=== PATIENT | male | born 1955 | race Caucasian/White ===

== ENCOUNTER 2020-01-06 09:08 | Outpatient (REF) | payer MEDICARE, SELFPAY ==
--- NOTE | 2020-01-06 09:14 | XR_ITS ---
EXAMINATION: XR CHEST CLINICAL INFORMATION: Bronchitis. COMPARISON: 03/18/2016 chest radiograph. TECHNIQUE: 2 views of the chest were obtained. FINDINGS: The lungs are clear. The heart and mediastinal structures are unremarkable. XR/XR chest 2V IMPRESSION: No acute cardiopulmonary process.
== END 2020-01-06 09:09 | disposition home or self-care (01) ==
LOC: HO.XRAY 09:08
PROVIDERS: Visit Provider Internal Medicine
DX: J40 Bronchitis, not specified as acute or chronic (principal)
CPT/HCPCS: 71046

== ENCOUNTER 2020-02-27 07:50 | Outpatient (REF) | payer MEDICARE, SELFPAY ==
[2020-02-27 08:24] LABS: Basophils Percent Auto 0.5 % (0-2); Eosinophils Absolute Auto 0.1 X10*3/uL (0.0-0.4); Eosinophils Percent Auto 2.5 % (0-4); Hematocrit 47.8 % (42-52); Hemoglobin 16.2 g/dl (14.0-18.0); Imm Gran Abs Auto 0.02 X10*3/uL (0.00-0.03); Imm Gran Pct Auto 0.5 % (0.0-0.4); Lymphocytes Absolute Auto 0.7 X10*3/uL (1.2-4.9); Lymphocytes Percent Auto 18.6 % (20-40); Mean Corpuscular HGB Conc 33.9 g/dl (31.0-36.0); Mean Corpuscular Hemoglobin 30.4 pg (27.0-33.0); Mean Corpuscular Volume 89.7 fL (80-98); Mean Platelet Volume 9.6 fL (9.4-12.4); Monocytes Absolute Auto 0.3 X10*3/uL (0.1-1.2); Monocytes Percent Auto 6.5 % (2-11); Neutrophils Absolute Auto 2.8 X10*3/uL (2.0-8.3); Neutrophils Percent Auto 71.4 % (45-73); Platelet Count 106 X10*3/uL (160-400); Red Blood Count 5.33 X10*6/uL (4.60-5.80); Red Cell Distribution Width 12.3 % (11.0-16.0)
[2020-02-27 08:25] LABS: MANUAL DIFF FLAG NO
[2020-02-27 08:28] LABS: Glucose Urine UA NEG (NEG); Leukocyte Esterase Urine NEG (NEG); Nitrite Urine NEG (NEG); Specific Gravity - Urine 1.025 (1.005-1.025); Urine Blood NEG (NEG); Urine Ketones NEG (NEG); Urine Protein NEG (NEG-TRACE)
[2020-02-27 08:38] LABS: Appearance Urine CLEAR; Color Urine YELLOW
[2020-02-27 08:59] LABS: Alanine Aminotransferase 23 U/L (0-40); Albumin Level 4.3 g/dL (3.5-5.0); Alkaline Phosphatase 62 U/L (39-117); Anion Gap 8 (12-20); Aspartate Amino Transferase 17 U/L (5-37); Bilirubin Total 0.5 mg/dL (0.0-1.0); Blood Urea Nitrogen 15 mg/dL (9-16); Calcium 8.8 mg/dL (8.4-10.2); Carbon Dioxide 31 mmol/L (22-29); Chloride 107 mmol/L (96-108); Cholesterol 149 mg/dL; Estimated Glomerular Filt Rate > 60; Glucose Fasting 106 mg/dL (60-99); HDL Cholesterol 46 mg/dL; LDL Cholesterol Calculated 88 mg/dl; Potassium 4.2 mmol/l (3.3-5.1); Sodium 142 mmol/L (135-145); Total Protein 6.5 g/dL (6.5-8.0); Triglycerides 76 mg/dL
[2020-02-27 09:18] LABS: Prostate Specific Antigen 1.52 ng/mL (<0.05-4.0)
[2020-02-27 09:28] LABS: Reflex LDLD? No
== END 2020-02-27 07:51 | disposition home or self-care (01) ==
LOC: HO.LAB 07:50
PROVIDERS: Visit Provider Internal Medicine
DX: Z00.00 Encounter for general adult medical examination without abnormal findings (principal); E78.00 Pure hypercholesterolemia, unspecified; D64.9 Anemia, unspecified; D69.6 Thrombocytopenia, unspecified
CPT/HCPCS: 36415; 80053; 80061; 81003; 84153; 85025

== ENCOUNTER 2020-03-27 16:00 | Outpatient (REF) | payer MEDICARE, SELFPAY ==
[2020-03-27 16:40] LABS: MANUAL DIFF FLAG NO
[2020-03-27 16:55] LABS: Basophils Percent Auto 0.5 % (0-2); Eosinophils Absolute Auto 0.1 X10*3/uL (0.0-0.4); Eosinophils Percent Auto 1.9 % (0-4); Hematocrit 45.6 % (42-52); Hemoglobin 15.8 g/dl (14.0-18.0); Imm Gran Abs Auto 0.01 X10*3/uL (0.00-0.03); Imm Gran Pct Auto 0.2 % (0.0-0.4); Lymphocytes Absolute Auto 1.3 X10*3/uL (1.2-4.9); Lymphocytes Percent Auto 21.7 % (20-40); Mean Corpuscular HGB Conc 34.6 g/dl (31.0-36.0); Mean Corpuscular Hemoglobin 30.3 pg (27.0-33.0); Mean Corpuscular Volume 87.5 fL (80-98); Mean Platelet Volume 9.5 fL (9.4-12.4); Monocytes Absolute Auto 0.5 X10*3/uL (0.1-1.2); Monocytes Percent Auto 9.2 % (2-11); Neutrophils Absolute Auto 3.8 X10*3/uL (2.0-8.3); Neutrophils Percent Auto 66.5 % (45-73); Platelet Count 146 X10*3/uL (160-400); Red Blood Count 5.21 X10*6/uL (4.60-5.80); Red Cell Distribution Width 12.2 % (11.0-16.0); White Blood Count 5.8 X10*3/uL (4.8-10.8)
== END 2020-03-27 16:01 | disposition home or self-care (01) ==
LOC: HO.LAB 16:00
PROVIDERS: PCP Internal Medicine; Visit Provider Internal Medicine
DX: D69.6 Thrombocytopenia, unspecified (principal)
CPT/HCPCS: 36415; 85025

== ENCOUNTER 2021-03-12 14:10 | Outpatient (REF) | payer MEDICARE, SELFPAY ==
[2021-03-12 14:15] LABS: MANUAL DIFF FLAG NO
[2021-03-12 14:19] LABS: Appearance Urine CLEAR; Color Urine YELLOW; Glucose Urine UA NEG (NEG); Leukocyte Esterase Urine NEG (NEG); Nitrite Urine NEG (NEG); Urine Blood NEG (NEG); Urine Ketones NEG (NEG); Urine Protein NEG (NEG-TRACE)
[2021-03-12 14:39] LABS: Basophils Percent Auto 0.4 % (0-2); Eosinophils Absolute Auto 0.1 X10*3/uL (0.0-0.4); Eosinophils Percent Auto 2.3 % (0-4); Hematocrit 48.1 % (42.0-52.0); Hemoglobin 16.5 g/dl (14.0-18.0); Imm Gran Abs Auto 0.02 X10*3/uL (0.00-0.03); Imm Gran Pct Auto 0.4 % (0.0-0.4); Lymphocytes Absolute Auto 1.1 X10*3/uL (1.2-4.9); Mean Corpuscular HGB Conc 34.3 g/dl (31.0-36.0); Mean Corpuscular Hemoglobin 30.8 pg (27.0-33.0); Mean Corpuscular Volume 89.7 fL (80.0-98.0); Mean Platelet Volume 9.8 fL (9.4-12.4); Monocytes Absolute Auto 0.4 X10*3/uL (0.1-1.2); Monocytes Percent Auto 7.2 % (2-11); Neutrophils Absolute Auto 3.2 x10*3/uL (2.0-8.3); Neutrophils Percent Auto 66.7 % (45-73); Platelet Count 125 X10*3/uL (160-400); Red Blood Count 5.36 X10*6/uL (4.60-5.80); Red Cell Distribution Width 12.5 % (11.0-16.0); White Blood Count 4.9 X10*3/uL (4.8-10.8)
[2021-03-12 15:02] LABS: Alanine Aminotransferase 24 U/L (0-40); Albumin Level 4.1 g/dL (3.5-5.0); Alkaline Phosphatase 65 U/L (39-117); Anion Gap 11 (12-20); Aspartate Amino Transferase 16 U/L (5-37); Bilirubin Total 0.5 mg/dL (0.0-1.0); Blood Urea Nitrogen 14 mg/dL (9-16); Calcium 9.5 mg/dL (8.4-10.2); Carbon Dioxide 30 mmol/L (22-29); Chloride 105 mmol/L (96-108); Cholesterol 153 mg/dL; Estimated Glomerular Filt Rate > 60; Glucose Fasting 105 mg/dL (60-99); HDL Cholesterol 42 mg/dL; LDL Cholesterol Calculated 95 mg/dl; Potassium 4.5 mmol/L (3.3-5.1); Sodium 141 mmol/L (135-145); Total Protein 6.9 g/dL (6.5-8.0); Triglycerides 81 mg/dL
[2021-03-12 15:23] LABS: PSA,Total (Free>4and<10) 1.61 ng/mL (0.00-4.00)
== END 2021-03-12 14:11 | disposition home or self-care (01) ==
LOC: HO.LNP 14:10
PROVIDERS: Referring Provider Internal Medicine; Visit Provider Internal Medicine
DX: Z00.00 Encounter for general adult medical examination without abnormal findings (principal); Z12.5 Encounter for screening for malignant neoplasm of prostate; E78.00 Pure hypercholesterolemia, unspecified; D69.6 Thrombocytopenia, unspecified; N42.9 Disorder of prostate, unspecified; D64.9 Anemia, unspecified
CPT/HCPCS: 80053; 80061; 81003; 84153; 85025

== ENCOUNTER 2021-04-02 14:37 | Outpatient (REF) | payer MEDICARE, SELFPAY ==
--- NOTE | ~2021-04-02 | XR_ITS ---
EXAMINATION: XR RIBS, RIGHT CLINICAL INFORMATION: Right rib pain COMPARISON: Previous chest x-ray January 2020 TECHNIQUE: 3 views of the right ribs and one view of the chest were obtained. FINDINGS: Lungs are clear. No consolidation, pneumothorax, or pleural effusion. The cardiomediastinal silhouette and pulmonary vasculature are normal. There are degenerative changes of the thoracic spine. There is slight angulation of the right anterior lateral seventh rib suggestive of changes from old trauma. No acute fracture is seen. XR/XR ribs RT min 3V w CXR1V IMPRESSION: No evidence for acute disease in the chest. No acute rib fracture seen.
== END 2021-04-02 14:38 | disposition home or self-care (01) ==
LOC: HO.XRAY 14:37
PROVIDERS: PCP Internal Medicine; Visit Provider Internal Medicine
DX: R07.81 Pleurodynia (principal)
CPT/HCPCS: 71101

== ENCOUNTER 2022-05-08 11:50 | Outpatient (REF) | payer MEDICARE, SELFPAY ==
[2022-05-08 12:07] LABS: MANUAL DIFF FLAG NO
[2022-05-08 13:15] LABS: Basophils Percent Auto 0.5 % (0-2); Eosinophils Absolute Auto 0.1 X10*3/uL (0.0-0.4); Eosinophils Percent Auto 2.8 % (0-4); Hematocrit 49.6 % (42.0-52.0); Hemoglobin 16.8 g/dl (14.0-18.0); Imm Gran Abs Auto 0.01 X10*3/uL (0.00-0.03); Imm Gran Pct Auto 0.2 % (0.0-0.4); Lymphocytes Absolute Auto 0.9 X10*3/uL (1.2-4.9); Lymphocytes Percent Auto 20.9 % (20-40); Mean Corpuscular HGB Conc 33.9 g/dl (31.0-36.0); Mean Corpuscular Volume 88.6 fL (80.0-98.0); Mean Platelet Volume 9.8 fL (9.4-12.4); Monocytes Absolute Auto 0.4 X10*3/uL (0.1-1.2); Monocytes Percent Auto 8.5 % (2-11); Neutrophils Absolute Auto 2.9 x10*3/uL (2.0-8.3); Neutrophils Percent Auto 67.1 % (45-73); Platelet Count 115 X10*3/uL (160-400); Red Cell Distribution Width 12.7 % (11.0-16.0); White Blood Count 4.4 X10*3/uL (4.8-10.8)
[2022-05-08 13:17] LABS: Appearance Urine Clear; Color Urine Yellow; Glucose Urine UA Negative (Negative); Leukocyte Esterase Urine Negative (Negative); Nitrite Urine Negative (Negative); Specific Gravity - Urine 1.025 (1.005-1.025); Urine Blood Negative (Negative); Urine Ketones Negative (Negative); Urine Protein Negative (Neg-Trace)
[2022-05-08 16:31] LABS: Alanine Aminotransferase 22 U/L (0-40); Albumin Level 4.1 g/dL (3.5-5.0); Alkaline Phosphatase 59 U/L (39-117); Anion Gap 12 (12-20); Aspartate Amino Transferase 19 U/L (5-37); Bilirubin Direct 0.3 mg/dL (0.0-0.5); Bilirubin Total 0.9 mg/dL (0.0-1.0); Blood Urea Nitrogen 16 mg/dL (9-16); Calcium 9.4 mg/dL (8.4-10.2); Carbon Dioxide 29 mmol/L (22-29); Chloride 107 mmol/L (96-108); Cholesterol 164 mg/dL; Estimated Glomerular Filt Rate > 60; Glucose Fasting 96 mg/dL (60-99); HDL Cholesterol 37 mg/dL; LDL Cholesterol Calculated 105 mg/dl; PSA,Total (Free>4and<10) 1.74 ng/mL (0.00-4.00); Potassium 4.4 mmol/L (3.3-5.1); Sodium 144 mmol/L (135-145); Total Protein 6.4 g/dL (6.5-8.0); Triglycerides 110 mg/dL
[2022-05-08 17:00] LABS: Reflex LDLD? No
== END 2022-05-08 11:51 | disposition home or self-care (01) ==
LOC: HO.LNP 11:50
PROVIDERS: Visit Provider Internal Medicine
DX: Z00.00 Encounter for general adult medical examination without abnormal findings (principal); Z12.5 Encounter for screening for malignant neoplasm of prostate; E78.00 Pure hypercholesterolemia, unspecified; D64.9 Anemia, unspecified; D69.6 Thrombocytopenia, unspecified; R97.20 Elevated prostate specific antigen [PSA]
CPT/HCPCS: 80053; 80061; 80076; 81003; 84153; 85025

== ENCOUNTER 2023-02-12 07:44 | Outpatient (REF) | payer MEDICARE, SELFPAY ==
--- NOTE | ~2023-02-12 | CT_ITS ---
EXAMINATION: CT ABDOMEN AND PELVIS WITHOUT CONTRAST CLINICAL INFORMATION: Renal calculus. COMPARISON: Abdominal ultrasound 08/16/2016. TECHNIQUE: Multidetector volumetric imaging was performed from the superior aspect of the liver through the pubic symphysis. Sagittal and coronal reformatted images were obtained on the technologist's workstation. This CT examination was performed using dose optimization techniques as appropriate, variously including the following: *Automated exposure control *Adjustment of mA and/or kV according to patient size (this includes techniques or standardized protocols for targeted exams where dose is matched to indication/reason for exam; i.e. extremities or head) *Use of iterative reconstruction technique DLP: 497 mGy-cm FINDINGS: LUNG BASES: The visualized lung bases are unremarkable. LIVER, GALLBLADDER, AND BILIARY TREE: The liver is normal in size, shape, and attenuation. No focal hepatic lesion or biliary ductal dilatation is present. Cholecystectomy. PANCREAS: Duodenal diverticulum. No discrete mass or ductal dilatation. SPLEEN: Unremarkable. ADRENAL GLANDS: No adrenal mass. KIDNEYS AND URETERS: Punctate nonobstructing calculus in the lower pole left kidney 11.2 cm from posterolateral skin surface. No discrete renal mass. No hydronephrosis. No perinephric stranding. BLADDER: Mild diffuse bladder wall thickening and pericystic haziness suggesting cystitis. No discrete bladder calculus or bladder mass. GASTROINTESTINAL TRACT: Small hiatal hernia. Small and large bowel are normal in caliber. The appendix is normal. Mild colonic diverticulosis without evidence of diverticulitis. ABDOMINAL WALL: No significant hernia is appreciated. LYMPH NODES: No lymphadenopathy. VASCULAR: No aortic aneurysm. Minimal atherosclerosis. PELVIC VISCERA: The prostate is not enlarged. Vasectomy clips. OSSEOUS STRUCTURES: Moderate degenerative disc disease at L5-S1. CT/CT abdomen pelvis wo IV con IMPRESSION: Punctate nonobstructing calculus lower left kidney. Mildly thick-walled urinary bladder with pericystic haziness suggesting cystitis. Correlate with urinalysis. Fleischner guidelines were followed.
== END 2023-02-12 07:45 | disposition home or self-care (01) ==
LOC: HO.CT 07:44
PROVIDERS: PCP Internal Medicine; Visit Provider Physician Assistant
DX: N20.0 Calculus of kidney (principal)
CPT/HCPCS: 74176

== ENCOUNTER 2023-02-18 07:12 | Day surgery (SDC) | payer MEDICARE, SELFPAY ==
[2023-02-16 10:40] VITALS: BMI 27.7
--- NOTE | 2023-02-17 08:20 | P.CONAN_ITS ---
Documented by User: Concetta Aquino NP 02/17/23 08:20 HPI - Anesthesia Eval Consult details Narrative: 67yo [facility] Past Medical History Medical History Hemolytic anemia Renal calculi Elevated cholesterol Surgical History Surgical History Hx of cholecystectomy Hx of vasectomy H/O colonoscopy Social History Social History Patient Tobacco Use Status: Never used Tobacco Use of substances other than those prescribed or required for medical reasons: No Are you DNR?: Yes Advance Directives: No Advance Directives Information Provided: Yes Meds Allergies Allergy/AdvReac Type Severity Reaction Status Date / Time No Known Allergies Allergy Verified 02/18/23 07:54 Home Medications Medication Instructions Recorded Confirmed Last Taken Type cyanocobalamin (vitamin B-12) 1,000 mcg PO DAILY 02/16/23 02/18/23 Unknown History 1,000 mcg tablet (Vitamin B-12) folic acid 1 mg tablet 1 mg PO DAILY 02/16/23 02/18/23 02/11/23 History simvastatin 40 mg tablet 40 mg PO QPM 02/16/23 02/18/23 Unknown History tamsulosin 0.4 mg capsule 0.4 mg PO DAILY 02/16/23 02/18/23 Unknown History Exam Height,Weight and Vital Signs: Height 5 ft 8.5 in Weight 83.915 kg Assessment and Plan Assessment Anesthesia Assessment: Chart Reviewed Documented by User: Keren Simms MD 02/18/23 08:51 PMF Past Medical History Medical History Hemolytic anemia Renal calculi Elevated cholesterol Family History Family history of problems with anesthesia: No Surgical History Surgical History Hx of cholecystectomy Hx of vasectomy H/O colonoscopy History of Problems with Anesthesia: No Social History Social History Patient Tobacco Use Status: Never used Tobacco Use of substances other than those prescribed or required for medical reasons: No Are you DNR?: Yes Advance Directives: No Advance Directives Information Provided: Yes Meds Allergies Allergy/AdvReac Type Severity Reaction Status Date / Time No Known Allergies Allergy Verified 02/18/23 07:54 Home Medications Medication Instructions Recorded Confirmed Last Taken Type cyanocobalamin (vitamin B-12) 1,000 mcg PO DAILY 02/16/23 02/18/23 Unknown History 1,000 mcg tablet (Vitamin B-12) folic acid 1 mg tablet 1 mg PO DAILY 02/16/23 02/18/23 02/11/23 History simvastatin 40 mg tablet 40 mg PO QPM 02/16/23 02/18/23 Unknown History tamsulosin 0.4 mg capsule 0.4 mg PO DAILY 02/16/23 02/18/23 Unknown History Exam Airway Mallampati Class: II TM Dist: >3cm Neck ROM: Full Heart: rrr Lungs: cta Assessment and Plan Assessment Anesthesia Assessment: Anesthesia Plan Discussed Final Anesthetic Review Family History of Problems with Anesthesia: No History of Problems with Anesthesia: No NPO: Yes ASA Class: II Final Preanesthetic Review: No Changes in Pt Med Stat, Meds/Allgs Chart Reviewed, Consent Obtained/Reviewed and Anes Risks/Benef Reviewed Patient Risk: Low Procedure Risk: Low Anesthetic Plan Anesthetic Plan: MAC: Disposition: Standard PACU
[2023-02-18 07:55] VITALS: BP 147/84; PULSE 84; RESP 16; TEMP 36.4; O2SAT 96; BMI 28.8
[2023-02-18] MEDS: Lactated Ringers 1,000 ML 100 ML IVCONT (08:19)
--- NOTE | 2023-02-18 09:23 | P.BOP_ITS ---
Brief Operative Note Date of Service: 02/18/23 Pre-op diagnosis: Screening Post-op diagnosis: other (Diverticulosis) Procedure: Colonoscopy to the cecum and TI Surgeon: Momo Rojas MD Anesthesia: MAC Was an Operating Engineer Apprentice used for this Procedure?: No Estimated blood loss (mL): 0 Pathology: none sent Condition: stable Disposition: PACU
[2023-02-18 09:27] VITALS: BP 122/68; PULSE 85; RESP 18; TEMP 36.9; O2SAT 95
[2023-02-18 09:45] VITALS: BP 132/76; PULSE 77; RESP 18; TEMP 36.1; O2SAT 100
--- NOTE | 2023-02-18 10:08 | OP_ITS ---
DATE OF SERVICE: 02/18/2023 SURGEON: Momo Rojas MD INDICATIONS: The patient presents for evaluation of personal history of tubular adenoma of the colon and colorectal cancer screening. Full consent has been obtained from him for this, including risks of bleeding and perforation. PREOPERATIVE DIAGNOSIS: Personal history of tubular adenoma of the colon and colorectal cancer screening. POSTOPERATIVE DIAGNOSIS: PROCEDURE PERFORMED: Colonoscopy to the cecum and terminal ileum. ESTIMATED BLOOD LOSS: COMPLICATIONS: ANESTHESIA: Monitored anesthesia care. ASSISTANTS: SPECIMENS: POSTOPERATIVE DIAGNOSES: Personal history of tubular adenoma of the colon and colorectal cancer screening, diverticulosis, and internal hemorrhoids. DESCRIPTION OF PROCEDURE: The patient was placed in the left lateral decubitus position. The digital rectal exam revealed no abnormalities. The Olympus video pediatric colonoscope was entered into the rectum and advanced easily to the cecum. Once in the cecum, I did identify normal-appearing cecal pouch with appendiceal orifice and a normal-appearing ileocecal valve. The terminal ileum was cannulated and appeared normal. The scope was withdrawn back in the colon. The entire cecum and ileocecal valve appeared normal. The scope was slowly withdrawn assessing all mucosal surfaces carefully. Preparation was excellent. I did not visualize any sign of polyps, colitis, nor angiodysplasia. There was a mild amount of sigmoid diverticulosis. In the rectum, scope was retroflexed visualizing internal hemorrhoids, but no other pathology. The rectal mucosa appeared normal. The scope was straightened and withdrawn from the patient. He tolerated the procedure well and was returned to the recovery area in stable condition. IMPRESSION: 1. Diverticulosis. 2. Internal hemorrhoids. PLAN: Given his previous history of tubular adenoma, I would recommend a followup coloscopy in 5 years for further screening. He will otherwise see me on a p.r.n. basis. MD STACIA Mejia/MEKHI / [phone]
== END 2023-02-18 10:15 | disposition home or self-care (01) ==
PROVIDERS: PCP Internal Medicine; Visit Provider Internal Medicine
PROC: 0DJD8ZZ Inspection of Lower Intestinal Tract, Via Natural or Artificial Opening Endoscopic (ICD-10-PCS; CPT 45378; principal; 2023-02-18 08:30)
DX: Z12.11 Encounter for screening for malignant neoplasm of colon (principal); Z86.010 Personal history of colon polyps; K57.30 Diverticulosis of large intestine without perforation or abscess without bleeding; K64.8 Other hemorrhoids; E78.5 Hyperlipidemia, unspecified; D58.8 Other specified hereditary hemolytic anemias; Z87.442 Personal history of urinary calculi; Z98.52 Vasectomy status; Z90.49 Acquired absence of other specified parts of digestive tract; Z79.899 Other long term (current) drug therapy; Z66 Do not resuscitate
CPT/HCPCS: G0105; J2704

== ENCOUNTER 2023-03-30 10:42 | Outpatient (REF) | payer MEDICARE, SELFPAY | END 2023-03-30 10:43 | disposition home or self-care (01) | LOC: HO.LNP 10:42 | PROVIDERS: PCP Internal Medicine; Referring Provider Internal Medicine; Visit Provider Surgery | DX: L72.11 Pilar cyst (principal) | CPT/HCPCS: 11423; 88304; 99202 ==

== ENCOUNTER 2023-03-30 10:42 | Outpatient (AMB) | payer MEDICARE, SELFPAY ==
--- NOTE | 2023-03-30 10:51 | MHC.OFFVIS ---
Intake Vital Signs 03/30/23 10:57 Height 5 ft 8.5 in Weight 197 lb BMI 29.5 BP 147/72 H Blood Pressure Location Rt brachial Position Sitting Pulse 72 Intake Visit Reasons: scalp cyst Intake Note: Patient referred by pcp Dr. Duran for scalp cyst. Present since age 38. Patient c/o: denies pain, oozing, itch. No hx of skin ca. Cyber Security Analyst Required: No Accompanied by: Spouse Allergies No Known Allergies Allergy (Verified 03/30/23 10:55) Medication List - Last Reconciled 03/30/23 by Daniel Wan MD cyanocobalamin (vitamin B-12) (Vitamin B-12) 1,000 mcg PO DAILY folic acid 1 mg PO DAILY simvastatin 40 mg PO QPM tamsulosin 0.4 mg PO DAILY HPI HPI Comments History of Present Illness Details Patient presents with a scalp mass which he has had for 20 some odd years time. His increasing in size, becoming more symptomatic. He wished to have removed. Presents here with his . Chart was reviewed and patient evaluated [facility] Medical History Hemolytic anemia Renal calculi Elevated cholesterol Surgical History Hx of cholecystectomy Hx of vasectomy H/O colonoscopy Social History (Updated 03/30/23 @ 10:56 by DEANDRE Paz) Alcohol intake: never Patient Tobacco Use Status: Never used Tobacco Physical Exam Vital Signs: Last Vital Signs Pulse 72 03/30/23 10:57 BP 147/72 H 03/30/23 10:57 BMI result Body Mass Index 29.5 HEENT Other: Large frontal scalp when measuring approximately 3 x 2 cm. No other obvious pathology demonstrated Office Procedures Excision Details: Risks, benefits, alternatives of excision of scalp cyst reviewed with the patient and included but not limited to bleeding, infection, recurrence, numbness, pain, scarring and the patient wished to proceed. All questions answered. Consent signed. After appropriate positioning, patient underwent 1% lidocaine and Betadine prep. A longitudinal incision was made over the cyst in question and carried down through skin and medial and lateral skin flaps were developed with uneventful enucleation of a large Pilar cysts measuring approximately 3 x 2 cm. Specimen sent to pathology. Wound was irrigated, secured hemostasis, and closed using running 2-0 Prolene suture followed by bacitracin. Patient tolerated procedure well. 10035-[id number] scalp/neck/hands/feet/genitalia 2.1cm-3cm Procedure code (CPT) selection complete Office Meds lidocaine 1 %-epinephrine 1:100,000 injection solution Performing Provider: Daniel Wan MD Performing Location[place] [facility] Administered by: Daniel Wan MD on 03/30/23 12:41 Dose Route Admin Location Dispensed Lot Number Expiration Date [facility] [place]NOTE 2] Double End Trimmer 10 mL Infiltration 10 mL Assessment & Plan Assessment & Plan (1) Pilar cyst of scalp: Code(s): L72.11 - Pilar cyst Plan: Patient has been given local instructions including bacitracin each day, may shower tomorrow, no strenuous activities, ice to the wound periodically, and will see me in 1 0.5 weeks time or p.r.n.. Orders: Orders Surgical Today L72.11 - Pilar cyst AMB Excision Today L72.11 - Pilar cyst Coding Level of Care Code New Pt Level 5 (45674) Diagnoses Pilar cyst of scalp L72.11 CPT Codes Scalp/Neck/Hands/Feet/Genetalia - CPT: 73759-[id number] scalp/neck/hands/feet/genitalia 2.1cm-3cm ([id number])
[2023-03-30 10:57] VITALS: BP 147/72; PULSE 72; BMI 29.5
== END 2023-03-30 11:28 | disposition home or self-care (01) ==
PROVIDERS: PCP Internal Medicine; Referring Provider Internal Medicine; Visit Provider Surgery
DX: L72.11 Pilar cyst (principal)
CPT/HCPCS: 11423; 99204

== ENCOUNTER 2023-04-02 15:34 | Outpatient (REF) | payer MEDICARE, SELFPAY ==
[2023-04-02 15:50] LABS: Appearance Urine Clear; Color Urine Yellow; Glucose Urine UA Negative (Negative); Leukocyte Esterase Urine Negative (Negative); Nitrite Urine Negative (Negative); PH 6.5 (5.0-9.0); Urine Blood Negative (Negative); Urine Ketones Negative (Negative); Urine Protein Negative (Neg-Trace)
== END 2023-04-02 15:35 | disposition home or self-care (01) ==
LOC: HO.LNP 15:34
PROVIDERS: Visit Provider Internal Medicine
DX: Z13.89 Encounter for screening for other disorder (principal)
CPT/HCPCS: 81003; 87086

== ENCOUNTER 2023-04-08 08:59 | Outpatient (AMB) | payer MEDICARE, SELFPAY ==
[2023-04-08 09:21] VITALS: BP 125/68; PULSE 77; BMI 29.2
--- NOTE | 2023-04-08 09:21 | MHC.OFFVIS ---
Intake Vital Signs 04/08/23 09:21 Height 5 ft 8.5 in Weight 195 lb BMI 29.2 BP 125/68 Blood Pressure Location Rt brachial Position Sitting Pulse 77 Intake Visit Reasons: S/p exc scalp cyst- in office Intake Note: This presents for a follow-up assessment status post excision pilar cyst of the scalp. * pt* Pt c/o; reports no complaints at this time. Skid Adzer Required: No Accompanied by: Self / Same As Patient Allergies No Known Allergies Allergy (Verified 04/08/23 09:26) HPI S/p exc scalp cyst- in office HPI Details He underwent excision of a Pilar cyst on the scalp last March 30 under local anesthesia. He tolerated procedure well. He denies any significant complaints. [facility] Medical History Hemolytic anemia Renal calculi Elevated cholesterol Surgical History Hx of cholecystectomy Hx of vasectomy H/O colonoscopy Social History Alcohol intake: never Patient Tobacco Use Status: Never used Tobacco Review of Systems Const Denies chills and Denies fever(s) Card Denies chest pain, Denies dyspnea and Denies dyspnea on exertion Resp Denies cough, Denies dyspnea and Denies dyspnea on exertion GI Denies hematochezia and Denies change in bowel habits Denies hematuria and Denies difficulty urinating Musc Denies back pain and Denies limited range of motion Neuro Denies focal weakness and Denies convulsions Psych Denies depression and Denies mood swings Physical Exam Vital Signs: Last Vital Signs Pulse 77 04/08/23 09:21 BP 125/68 04/08/23 09:21 BMI result Body Mass Index 29.2 Const General: comfortable and no acute distress HEENT Other: Excision site on the scalp on the frontal area is well healed, not infected, sutures intact Resp Effort & Inspection: normal respiratory effort Assessment & Plan Assessment & Plan (1) Pilar cyst of scalp: Code(s): L72.11 - Pilar cyst Plan: Status post excision. I removed his sutures. The incision is well healed. Path report shows a Pilar cyst. He can follow up on a p.r.n. basis. Coding Level of Care Code Global (14785) Diagnoses Pilar cyst of scalp L72.11
== END 2023-04-08 09:37 | disposition home or self-care (01) ==
PROVIDERS: PCP Internal Medicine; Visit Provider Surgery
DX: L72.11 Pilar cyst (principal)
CPT/HCPCS: 99024

== ENCOUNTER → 2023-04-08 08:59 | Outpatient (BNVA) | payer MEDICARE, SELFPAY | PROVIDERS: PCP Internal Medicine; Visit Provider Surgery | DX: Z48.1 Encounter for planned postprocedural wound closure (principal); Z87.2 Personal history of diseases of the skin and subcutaneous tissue | CPT/HCPCS: 99212 ==

== ENCOUNTER 2023-05-11 10:22 | Outpatient (REF) | payer MEDICARE, SELFPAY ==
[2023-05-11 10:27] LABS: MANUAL DIFF FLAG NO
[2023-05-11 11:24] LABS: Basophils Percent Auto 0.7 % (0-2); Eosinophils Absolute Auto 0.2 X10*3/uL (0.0-0.4); Eosinophils Percent Auto 3.7 % (0-4); Hemoglobin 16.3 g/dl (14.0-18.0); Imm Gran Abs Auto 0.01 X10*3/uL (0.00-0.03); Imm Gran Pct Auto 0.2 % (0.0-0.4); Lymphocytes Absolute Auto 1.2 X10*3/uL (1.2-4.9); Lymphocytes Percent Auto 29.9 % (20-40); Mean Corpuscular HGB Conc 34.7 g/dl (31.0-36.0); Mean Corpuscular Hemoglobin 30.9 pg (27.0-33.0); Mean Corpuscular Volume 89.2 fL (80.0-98.0); Mean Platelet Volume 10.4 fL (9.4-12.4); Monocytes Absolute Auto 0.3 X10*3/uL (0.1-1.2); Monocytes Percent Auto 7.2 % (2-11); NRBC Pct Auto 0.5 /100WBC (0.0-0.2); Neutrophils Absolute Auto 2.3 x10*3/uL (2.0-8.3); Neutrophils Percent Auto 58.3 % (45-73); Platelet Count 102 X10*3/uL (160-400); Red Blood Count 5.27 X10*6/uL (4.60-5.80); Red Cell Distribution Width 13.1 % (11.0-16.0)
[2023-05-11 12:34] LABS: PSA,Total (Free>4and<10) 1.41 ng/mL (0.00-4.00)
[2023-05-11 12:58] LABS: Alanine Aminotransferase 30 U/L (0-40); Albumin Level 3.9 g/dL (3.5-5.0); Alkaline Phosphatase 58 U/L (39-117); Anion Gap 13 (12-20); Aspartate Amino Transferase 22 U/L (5-37); Bilirubin Total 0.7 mg/dL (0.0-1.0); Blood Urea Nitrogen 12 mg/dL (9-16); Calcium 9.6 mg/dL (8.4-10.2); Carbon Dioxide 29 mmol/L (22-29); Chloride 106 mmol/L (96-108); Cholesterol 145 mg/dL (<200); Estimated Glomerular Filt Rate > 60; Glucose Fasting 98 mg/dL (60-99); HDL Cholesterol 40 mg/dL (>40); LDL Cholesterol Calculated 80 mg/dL (<100); Potassium 3.6 mmol/L (3.3-5.1); Sodium 144 mmol/L (135-145); Total Protein 6.7 g/dL (6.5-8.0); Triglycerides 129 mg/dL (<150)
== END 2023-05-11 10:23 | disposition home or self-care (01) ==
LOC: HO.LNP 10:22
PROVIDERS: Visit Provider Internal Medicine
DX: Z00.00 Encounter for general adult medical examination without abnormal findings (principal); Z12.5 Encounter for screening for malignant neoplasm of prostate; E78.00 Pure hypercholesterolemia, unspecified; D64.9 Anemia, unspecified; D69.6 Thrombocytopenia, unspecified; N40.0 Benign prostatic hyperplasia without lower urinary tract symptoms
CPT/HCPCS: 80053; 80061; 84153; 85025

== ENCOUNTER 2023-11-19 11:00 | Outpatient (REF) | payer MEDICARE, SELFPAY ==
[2023-11-19 11:58] LABS: Alanine Aminotransferase 29 U/L (0-40); Alkaline Phosphatase 64 U/L (39-117); Aspartate Amino Transferase 25 U/L (5-37); Bilirubin Direct 0.4 mg/dL (0.0-0.5); Bilirubin Total 0.9 mg/dL (0.0-1.0); Cholesterol 122 mg/dL (<200); HDL Cholesterol 37 mg/dL (>40); LDL Cholesterol Calculated 69 mg/dL (<100); Total Protein 6.7 g/dL (6.5-8.0); Triglycerides 84 mg/dL (<150)
[2023-11-19 12:15] LABS: Reflex LDLD? No
== END 2023-11-19 11:01 | disposition home or self-care (01) ==
LOC: HO.LNP 11:00
PROVIDERS: Visit Provider Internal Medicine
DX: E78.00 Pure hypercholesterolemia, unspecified (principal)
CPT/HCPCS: 80061; 80076

== ENCOUNTER 2023-12-21 11:17 | Outpatient (REF) | payer MEDICARE, SELFPAY ==
--- NOTE | ~2023-12-21 | XR_ITS ---
EXAMINATION: XR CHEST CLINICAL INFORMATION: Cough for one month. COMPARISON: Most recent rib and chest radiographs dated 04/02/2021. TECHNIQUE: 2 views of the chest were obtained. FINDINGS: The lungs are clear. The cardiomediastinal silhouette is normal in size. There is no pleural effusion or pneumothorax. No acute osseous abnormality. XR/XR chest 2V IMPRESSION: No acute cardiopulmonary findings. Electronically signed by: Eldon Watson MD 12/21/2023 01:55 PM EDT
== END 2023-12-21 11:18 | disposition home or self-care (01) ==
LOC: HO.XRAY 11:17
PROVIDERS: PCP Internal Medicine; Visit Provider Internal Medicine
DX: J45.909 Unspecified asthma, uncomplicated (principal)
CPT/HCPCS: 71046

== ENCOUNTER 2024-05-12 10:17 | Outpatient (REF) | payer MEDICARE, SELFPAY ==
[2024-05-12 10:21] LABS: MANUAL DIFF FLAG NO
[2024-05-12 10:49] LABS: Appearance Urine Clear; Color Urine Yellow; Glucose Urine UA Negative (Negative); Leukocyte Esterase Urine Negative (Negative); Nitrite Urine Negative (Negative); PH 7.5 (5.0-9.0); Urine Blood Negative (Negative); Urine Ketones Negative (Negative); Urine Protein Negative (Neg-Trace)
[2024-05-12 10:51] LABS: Basophils Percent Auto 0.8 % (0-2); Eosinophils Absolute Auto 0.1 X10*3/uL (0.0-0.4); Eosinophils Percent Auto 3.8 % (0-4); Hemoglobin 17.3 g/dl (14.0-18.0); Imm Gran Abs Auto 0.01 X10*3/uL (0.00-0.03); Imm Gran Pct Auto 0.3 % (0.0-0.4); Lymphocytes Percent Auto 25.5 % (20-40); Mean Corpuscular HGB Conc 35.3 g/dl (31.0-36.0); Mean Corpuscular Hemoglobin 30.8 pg (27.0-33.0); Mean Corpuscular Volume 87.2 fL (80.0-98.0); Mean Platelet Volume 9.8 fL (9.4-12.4); Monocytes Absolute Auto 0.3 X10*3/uL (0.1-1.2); Monocytes Percent Auto 8.3 % (2-11); Neutrophils Absolute Auto 2.3 x10*3/uL (2.0-8.3); Neutrophils Percent Auto 61.3 % (45-73); Platelet Count 136 X10*3/uL (160-400); Red Blood Count 5.62 X10*6/uL (4.60-5.80); Red Cell Distribution Width 12.8 % (11.0-16.0); White Blood Count 3.7 X10*3/uL (4.8-10.8)
[2024-05-12 10:57] LABS: Bacteria Urine None Seen (None Seen); Hyaline Casts Urine 0-2 /LPF (0-2); RBC Urine 0-2 /HPF (0-2); Squamous Epithelial Cell Urine 0-2 /HPF (0-2); WBC Urine 0-5 /HPF (0-5)
[2024-05-12 11:01] LABS: Alanine Aminotransferase 45 U/L (0-40); Alkaline Phosphatase 68 U/L (39-117); Anion Gap 9 (12-20); Aspartate Amino Transferase 31 U/L (5-37); Bilirubin Direct 0.2 mg/dL (0.0-0.5); Bilirubin Total 0.6 mg/dL (0.0-1.0); Blood Urea Nitrogen 15 mg/dL (9-16); Calcium 9.5 mg/dL (8.4-10.2); Carbon Dioxide 27 mmol/L (22-29); Chloride 110 mmol/L (96-108); Cholesterol 154 mg/dL (<200); Estimated Glomerular Filt Rate > 60; Glucose Fasting 105 mg/dL (60-99); HDL Cholesterol 44 mg/dL (>40); LDL Cholesterol Calculated 96 mg/dL (<100); Potassium 4.6 mmol/L (3.3-5.1); Sodium 141 mmol/L (135-145); Total Protein 6.9 g/dL (6.5-8.0); Triglycerides 71 mg/dL (<150)
[2024-05-12 11:10] LABS: PSA,Total (Free>4and<10) 1.93 ng/mL (0.00-4.00)
--- OUTSIDE RECORDS SUMMARY | 2024-05-12 12:45 | XMS_ITS ---
Author Organization [facility] Address [address] [place] [phone] Care Team Providers Care Hat Finisher Name Role Phone Yves Duran MD Primary Care Provider Momo Vergara [phone] Allergies No Known Allergies REASON FOR VISIT patient presents today for screening colonoscopy Medications Medication SIG (Take, Route, Frequency, Duration) Notes Start Date End Date Status Vitamin B12 1000 MCG 1 tablet Orally Once a day Active Finasteride 5 MG TK 1 T PO QD Oral for 60 Active Ibuprofen 800 MG Oral for 90 N ot-Taking Folic Acid 1 MG 1 tablet Orally Once a day Active Simvastatin 40 MG 1 tablet in the even ing Orally Once a day Active Vital Signs Temperature 97.3 degrees Fahrenheit 11/21/19 23 Blood pressure systolic 000 mm Hg 11/21/19 23 Blood pressure diastolic 00 mm Hg 023 Height 68.5 in 11/20/2022 Weight 185 lbs 11/20/2022 BMI 27.72 kg/m2 11/20/2022 Encounters Encounter Location Date Provider Diagnosis [facility] [address] [place] [phone] 11/20/2022 Momo Rojas History of adenomato us polyp of colon Z86.010 ; Pre-procedural examination Z01.818 and Encounter for screening for malignant neoplasm of colon Z12.11 Assessments Encounter Date Diagnosis (ICD Code) Assessment Notes Treatment Notes Treatment Clinical Notes Section Notes 11/20/2022 History of adenomatous polyp of colon (ICD-10 - Z86.010) Overall, Frank appears quite well. I did recommend a followup colonoscopy for further screening purposes given his previous history of tubular adenomas and his last colonoscopy being just about 5 years ago. We did review the rationale for that in regard to colon cancer prevention. Full consent was obtained for this, including risks of bleeding and perforation. The procedure will be done with monitored anesthesia care. Frank was comfortable with this plan. Thank you again for allowing me to participate in Frank's care. I shall continue to keep you advised of his progress. 11/20/2022 Pre-procedural examination (ICD-10 - Z01.818) Overall, Frank appears quite well. I did recommend a followup colonoscopy for further screening purposes given his previous history of tubular adenomas and his last colonoscopy being just about 5 years ago. We did review the rationale for that in regard to colon cancer prevention. Full consent was obtained for this, including risks of bleeding and perforation. The procedure will be done with monitored anesthesia care. Frank was comfortable with this plan. Thank you again for allowing me to participate in Frank's care. I shall continue to keep you advised of his progress. 11/20/2022 Encounter for screening for malignant neoplasm of colon (ICD-10 - Z12.11) Overall, Frank appears quite well. I did recommend a followup colonoscopy for further screening purposes given his previous history of tubular adenomas and his last colonoscopy being just about 5 years ago. We did review the rationale for that in regard to colon cancer prevention. Full consent was obtained for this, including risks of bleeding and perforation. The procedure will be done with monitored anesthesia care. Frank was comfortable with this plan. Thank you again for allowing me to participate in Frank's care. I shall continue to keep you advised of his progress. Plan Of Treatment Future Test Test Name Order Date COLONOSCOPY 11/20/2022 Next Appt Details Follow Up: prn, Reason: Progress Notes * FRANK BOSCH EDOB:1955 (67 yo M)Acc No.[id number]:11/20/2022 Progress Notes Patient:?JOVANI BOSCHNOEMI Shanique Provider:?Momo Rojas MD :1955???Age:67 Y???Sex:Male Murray e:11/20/2022 Address:[address] [place] [address], [id number] Pcp:Yves Duran MD Subjective: * Chief Complaints: * ???Patient presents today fo r screening colonoscopy * HPI: ???incontinence:? I saw Frank in the office today for evaluation of his personal history of tubular adenomas and need for colorectal cancer screening. ?I last saw Frank in November 2017, at which time he underwent a negative followup screening colonoscopy. He currently feels very well. He enjoys a good appetite. He does have occasional heartburn but this is not particularly frequent and does not last particularly long. He will take occasional tdqf-voj-biiwjqo antacids with relief. He denies any dysphagia, nausea, vomiting, early satiety, nor abdominal pain. He denies any nocturnal episodes of heartburn. His bowel movements have been regular, without any hematochezia nor melena. He denies any jaundice nor unintentional weight loss. He denies any known family history of colon cancer. * ROS:?General/Constitutional:?Change in appetite?denies.?Chills?denies.?Fatigue?denies.?Ophthalmologic:?Patient denies? Negative..?ENT:?Patient denies?Negative..?Respiratory:?Patient denies?No coughing/hemoptysis..?Cardiovascular:?Patient denies? No chest pain/orthopnea..?Gastrointestinal:?Comments?See HPI for details.?Genitourinary:?Patient denies? No dysuria/hematuria..?Musculoskeletal:?Patient denies? No specific arthralgias/myalgias..?Skin:?Patient denies?No rash/pruritus..?Neurologic:?Patient denies? No headaches/seizures..?Psychiatric:?Patient denies?Negative..? * Medical History:? * Surgical History:?Vasectomy Lap CCY in 04/[address] Marks at [facility] * Hospitalization/Major Diagno stic Procedure:? * Family History:?Father: dece ased 100 yrs.?Mother: 99 yrs, diagnosed with HTN (hypertension).? No family hx of colorectal cancer. * Social History:?Tobacco Use:?Tobacco Use/Smoking?Are you a: nonsmoker.?Drugs/Alcohol:?Alcohol Screen?Points: 0, Interpretation: Negative.?Miscellaneous:?Marital status: . 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 ???nonsmoker; no alcohol. * Medications:?TakingFolic Aci d 1 MG Tablet 1 tablet Orally Once a daySimvastatin 40 MG Tablet 1 tablet in the evening Orally Once a dayVitamin B12 1000 MCG Tablet Extended Release 1 tablet Orally Once a dayFinasteride 5 MG Tablet TK 1 T PO QD Oral Taking Folic Acid 1 MG Tablet 1 tablet Orally Once a dayTaking Simvastatin 40 MG Tablet 1 tablet in the evening Orally Once a dayTaking Vitamin B12 1000 MCG Tablet Extended Release 1 tablet Orally Once a dayTaking Finasteride 5 MG Tablet TK 1 T PO QD Oral Not-Taking/PRNIbuprofen 800 MG Tablet Oral Not-Taking/PRN Ibuprofen 800 MG Tablet Oral DiscontinuedTamsulosin HCl 0.4 MG Capsule TK ONE C PO D 30 MINUTES AFTER SAME MEAL D Oral Medication List reviewed and reconciled with the patientDiscontinued Tamsulosin HCl 0.4 MG Capsule TK ONE C PO D 30 MINUTES AFTER SAME MEAL D Oral Medication List reviewed and reconciled with the patient * Allergies:?N.K.D.A.yes[Aller gies Verified] Objective: * Vitals:?Wt: 185 lbs, Ht: 68. 5 in, BMI:27.72 Index, BP: 000/00 mm Hg, Temp: 97.3. * Examination: ???General Examination: ?GENERAL APPEARANCE:?pleasant, well nourished, well developed, in no acute distress.?EYES:?sclera non-icteric.?ORAL CAVITY:?mucosa moist.?NECK/THYROID:?no cervical lymphadenopathy, neck supple.?SKIN:?nonjaundiced, no spider angiomata..?HEART:?S1, S2 normal.?LUNGS:?clear to auscultation bilaterally.?ABDOMEN:?normal bowel sounds, no guarding or rigidity, no hepatosplenomegaly, no masses palpable, soft, nondistended, NT..?EXTREMITIES:?no edema.?NEUROLOGIC:?alert and oriented.? Assessment: * Assessment: 1.?Pre-procedural examinatio n - Z01.818 (Primary)?2.?History of adenomatous polyp of colon - Z86.010?3.?Encounter for screening for malignant neoplasm of colon - Z12.11? Overall, Frank appears anthony te well. I did recommend a followup colonoscopy for further screening purposes given his previous history of tubular adenomas and his last colonoscopy being just about 5 years ago. We did review the rationale for that in regard to colon cancer prevention. Full consent was obtained for this, including risks of bleeding and perforation. The procedure will be done with monitored anesthesia care. Frank was comfortable with this plan. Thank you again for allowing me to participate in Frank's care. I shall continue to keep you advised of his progress. Plan: * Treatment: 2.?Encounter for screening for malignant neoplasm of colon?Procedure: COLONOSCOPY (Ordered for 11/20/2022)* with MACsched for 02/18/23 a t 8:30 ammiralax * Procedure Codes:?3017F COLOR ECTAL CA SCREEN DOC [id number] TOBACCO NON-[id number] BP SCR NOT PRFRM REC REASON NOS * Preventive Medicine:? ??Counseling:?Care goal follow-up plan:?Above Normal BMI Follow-up?Giving encouragement to exercise,?BMI management provided?Yes.? * Follow Up:?prn * * Sign off status: Completed true * Provider:?Momo Rojas MD Date:? 023 Generated for Kartik arnold/Aren/Delvisitting on:?05/12/2024 12:45 PM EDT History and Physical Notes * HPI (History of Present Illness) Category Sub-Category Detail Notes Category Not es incontinence I saw Frank in the office today for evaluation of his personal history of tubular adenomas and need for colorectal cancer screening. I last saw Frank in November 2017, at which time he underwent a negative followup screening colonoscopy. He currently feels very well. He enjoys a good appetite. He does have occasional heartburn but this is not particularly frequent and does not last particularly long. He will take occasional vjjr-tss-axmnrpr antacids with relief. He denies any dysphagia, nausea, vomiting, early satiety, nor abdominal pain. He denies any nocturnal episodes of heartburn. His bowel movements have been regular, without any hematochezia nor melena. He denies any jaundice nor unintentional weight loss. He denies any known family history of colon cancer. Examination Category Sub-Category Detail Notes Category Not es General Examination GENERAL APPEARANCE: pleasant , well nourished, well developed, in no acute distress EYES: sclera non-icteric NECK/THYROID: no cervical lymphade nopathy, neck supple HEART: S1, S2 normal LUNGS: clear to auscultatio n bilaterally ABDOMEN: normal bowel sounds, no guarding or rigidity, no hepatosplenomegaly, no masses palpable, soft, nondistended, NT. NEUROLOGIC: alert and oriented SKIN: nonjaundiced, no spi arielle angiomata. EXTREMITIES: no edema ORAL CAVITY: mucosa moist
--- OUTSIDE RECORDS SUMMARY | 2024-05-12 12:46 | XMS_ITS ---
Author Organization Yves Duran MD Address [address] [place], [place] [phone] Care Team Providers Care Sap Security Architect Name Role Phone Roger Yves Primary Care Provider [phone] Results Component Value Reference Range Notes Complete Blood Count Auto Di ff (Not yet reviewed by provider) Interpretation: Performing Lab:[facility], [address] [place] [id number] Notes/Report: White Blood Count 3.7 4.8-10.8 X10*3/uL Red Blood Count 5.62 4.60-5.80 X10*6/uL Hemoglobin 17.3 14.0-18.0 g/dl Hematocrit 49.0 42.0-52.0 % Mean Corpuscular Volume 87.2 80.0-98.0 fL Mean Corpuscular Hemoglobin 30.8 27.0-33.0 pg Mean Corpuscular HGB Conc 35.3 31.0-36.0 g/dl Red Cell Distribution Width 12.8 11.0-16.0 % Platelet Count 136 160-400 X10*3/uL Mean Platelet Volume 9.8 9.4-12.4 fL Neutrophils Percent Auto 61.3 45-73 % Imm Gran Pct Auto 0.3 0.0-0.4 % Lymphocytes Percent Auto 25.5 20-40 % Monocytes Percent Auto 8.3 2-11 % Eosinophils Percent Auto 3.8 0-4 % Basophils Percent Auto 0.8 0-2 % NRBC Pct Auto 0.0 0.0-0.2 /100WBC Neutrophils Absolute Auto 2.3 2.0-8.3 x10*3/u L Imm Gran Abs Auto 0.01 0.00-0.03 X10*3/uL Lymphocytes Absolute Auto 1.0 1.2-4.9 X10*3/u L Monocytes Absolute Auto 0.3 0.1-1.2 X10*3/uL Eosinophils Absolute Auto 0.1 0.0-0.4 X10*3/u L Basophils Absolute Auto 0.0 0.0-0.2 X10*3/uL NRBC Abs Auto 0.000 0.0-0.012 X10*3/uL PSA,Total (Free>4and<10) (No t yet reviewed by provider) Interpretation: Performing Lab:[address] [phone] Notes/Report: PSA,Total (Free>4and<10) 1.93 0.00-4.00 ng/mL A Free PSA was not performed: The percentage of Free PSA can be used to enhance the differentiation of prostate cancer from benign prostatic disease in subjects whose PSA levels are between 4.0 and 10.0 ng/mL. For subjects whose PSA levels are below 4.0 or above 10.0 ng/mL, the risk of prostate cancer is determined on the basis of the PSA alone. Therefore the % Free PSA is recommended only for those subjects whose PSA levels are between 4.0 and 10.0 ng/mL. PSA methodology: Dyer Alinity i Chemiluminescent Microparticle Immunoassay (CMIA) UA ClnCatch+Micro w/rflx Cul t (Not yet reviewed by provider) Interpretation: Performing Lab:[address] [phone] Notes/Report: Urine, Clean Catch Color Urine Yellow Appearance Urine Clear PH 7.5 5.0-9.0 Glucose Urine UA Negative Negative mg/dL Urine Blood Negative Negative Specific [employer] - Urine 1.020 1.005-1.025 Urine Protein Negative Neg-Trace mg/dL Urine Ketones Negative Negative mg/dL Nitrite Urine Negative Negative Leukocyte Esterase Urine Negative Negative RBC Urine 0-2 0-2 /HPF WBC Urine 0-5 0-5 /HPF Squamous Epithelial Cell Urine 0-2 0-2 /HPF Bacteria Urine None Seen None Seen Hyaline Casts Urine 0-2 0-2 /LPF REASON FOR VISIT FASTING LIPIDS Medications Medication SIG (Take, Route, Frequency, Duration) Notes Start Date End Date Status Ibuprofen 800 MG 1 tablet with food o r milk as needed Orally Three times a day for 30 days Active Simvastatin 40 MG TAKE 1 TABLET BY GORDON TH EVERY EVENING for 90 Active predniSONE 10 MG 1 tablet with food o r milk Orally 4 tabs for 3 days,3tabs for 3 days, 2 tabs for 3 days, and 1 tab for 3 days for 14 days 12/21/2023 Active Albuterol Sulfate HFA 108 (90 Base) MCG/ACT INHALE 1 PUFF BY MOUTH EVERY 4 HOURS NEEDED for 33 Not-Taking Tamsulosin HCl 0.4 MG TAKE 1 CAPSULE BY MOUTH EVERY DAY 30 MINUTES AFTER THE SAME MEAL Active Folic Acid 1 MG 1 tablet Orally Once a day for 30 day(s) Active Finasteride 5 MG 1 tablet Orally Once a day Active Vitamin B12 1000 mg 1 tablet Orally Once a day Active Encounters Encounter Location Date Provider Diagnosis Yves Duran MD [address] [place] [address] [address] [place], [place] [phone] 05/12/2024 Yves Duran Pure hypercholestero lemia E78.00 ; Encounter for blood test for routine general physical examination Z00.00 ; Thrombocytopenia D69.6 ; Reflux esophagitis K21.00 ; Anemia, unspecified type D64.9 and Benign prostatic hyperplasia without lower urinary tract symptoms N40.0 Assessments Encounter Date Diagnosis (ICD Code) Assessment Notes Treatment Notes Treatment Clinical Notes Section Notes 05/12/2024 Pure hypercholesterolemia (ICD-10 - E78.00) 05/12/2024 Encounter for blood test for routine general physical examination (ICD-10 - Z00.00) 05/12/2024 Thrombocytopenia (IC D-10 - D69.6) 05/12/2024 Reflux esophagitis (ICD-10 - K21.00) 05/12/2024 Anemia, unspecified type (ICD-10 - D64.9) 05/12/2024 Benign prostatic hyperplasia without lower urinary tract symptoms (ICD-10 - N40.0) Plan Of Treatment Pending Test Test Name Order Date Complete Blood Count Auto Diff Comprehensive [place]. Panel Fast Liver Panel 05/12/2024 Lipid Panel with Reflex 05/12/2024 PSA,Total (Free>4and<10) 05/12/2024 UA ClnCatch+Micro w/rflx Cult 05/12/2024 Next Appt Details Provider Name:Yves esposito, 05/19/2024 02:30:00 PM, [address] [facility], [address], [place], [place], [phone], Progress Notes * Frank BOSCH EDOB:1955 (69 yo M)Acc No.[id number]:05/12/2024 Progress Note Patient:?Frank BOSCH Provider:?Yves Duran MD :1955???Age:69 Y???Sex:Male Murray e:05/12/2024 Address:[address] [place], [place] [id number] Subjective: * Chief Complaints: * ???1. FASTING LIPIDS. * Medical History:? * Medications:?Taking Folic Ac id 1 MG Tablet 1 tablet Orally Once a day , Taking Vitamin B12 1000 mg Tablet 1 tablet Orally Once a day , Taking Finasteride 5 MG Tablet 1 tablet Orally Once a day , Taking Tamsulosin HCl 0.4 MG Capsule TAKE 1 CAPSULE BY MOUTH EVERY DAY 30 MINUTES AFTER THE SAME MEAL , Taking predniSONE 10 MG Tablet 1 tablet with food or milk Orally 4 tabs for 3 days,3tabs for 3 days, 2 tabs for 3 days, and 1 tab for 3 days , Taking Simvastatin 40 MG Tablet TAKE 1 TABLET BY MOUTH EVERY EVENING , Taking Ibuprofen 800 MG Tablet 1 tablet with food or milk as needed Orally Three times a day , Not-Taking/PRN Albuterol Sulfate HFA 108 (90 Base) MCG/ACT Aerosol Solution INHALE 1 PUFF BY MOUTH EVERY 4 HOURS NEEDED Objective: * Vitals:? Assessment: * Assessment: 1.?Encounter for blood test for routine general physical examination - Z00.00 (Primary)???2.?Pure hypercholesterolemia - E78.00???3.?Thrombocytopenia - D69.6???4.?Reflux esophagitis - K21.00???5.?Anemia, unspecified type - D64.9???6.?Benign prostatic hyperplasia without lower urinary tract symptoms - N40.0??? Plan: * Treatment: 2.?Thrombocytopenia?LAB: Complete Blood Count Auto Diff (Collection Date & Time - 05/12/2024 08:00 AM) ?LAB: [facility] [place]. Panel Fast ?LAB: PSA,Total (Free>4and<10) (Collection Date & Time - 05/12/2024 08:00 AM) ?LAB: UA ClnCatch+Micro w/rflx Cult (Collection Date & Time - 05/12/2024 08:00 AM) 3.?Reflux esophagitis?LAB: Complete Blood Count Auto Diff (Collection Date & Time - 05/12/2024 08:00 AM) ?LAB: [facility] [place]. Panel Fast ?LAB: PSA,Total (Free>4and<10) (Collection Date & Time - 05/12/2024 08:00 AM) ?LAB: UA ClnCatch+Micro w/rflx Cult (Collection Date & Time - 05/12/2024 08:00 AM) * Procedure Codes:?75195 VENIP UNCT, ROUTINE*, 14893 VENIPUNCT, ROUTINE* * * The named appointment provid er may or may not be the originator of this progress note, and it is not deemed complete until electronically signed by the appointment provider. Sign off status: Pending * Provider:?Yves Duran MD Date:?0 05/12/2024 Generated for Josei clayton/Noelleg/eTransmitting on:?05/12/2024 12:46 PM EDT
--- OUTSIDE RECORDS SUMMARY | 2024-05-12 12:46 | XMS_ITS ---
Author Organization Yves Duran MD Address [address] [place] [phone] Care Team Providers Care Oracle Ebs Developer Name Role Phone Yves Duran Primary Care Provider Medications Medication SIG (Take, Route, Fr equency, Duration) Notes Start Date End Date Status Ibuprofen 800 MG 1 tablet with food o r milk as needed Orally Three times a day for 30 days Active Encounters Encounter Location Date Provider Diagnosis Yves Duran MD [address] [place], [place] [phone] 03/07/2024 Yves Duran Plan Of Treatment Medication Medication Name Sig Start Date Stop Date Notes Ibuprofen 800 MG 1 tablet with food o r milk as needed Orally Three times a day for 30 days Next Appt Details Provider Name:Yves esposito, 05/19/2024 02:30:00 PM, [address], [address], [place], [place], [phone], Progress Notes * Frank BOSCH EDOB:1955 (68 yo M)Acc No.[id number]:03/07/2024 Patient:?Jhon Frank E :1955???Age:68 Y???Sex:Male Address:[address] [place] [address], [place] [address] * Refills? Refill Ibuprofen Tablet, 800 MG, Orally, 90 Tablet, 1 tablet with food or milk as needed, Three times a day, 30 days, Refills=0 * true * Date:? Generated for Kartik arnold/Aren/eTransmitting on:?05/12/2024 12:46 PM EDT
--- OUTSIDE RECORDS SUMMARY | 2024-05-12 12:46 | XMS_ITS ---
Author Organization [facility] Address [address] [place] [phone] Care Team Providers Care Merchandise Marker Name Role Phone Roger SOLIS, Yves Primary Care Provider Momo Vergara [phone] REASON FOR VISIT Patient presents today for a colon screening, endo Encounters Encounter Location Date Provider Diagnosis [facility] [address] [place] [phone] 11/12/2022 Momo Rojas Plan Of Treatment No Information Progress Notes * WHIT BOSCH EDOB:1955 (69 yo M)Acc No.[id number]:11/12/2022 Progress Notes Patient:?WHIT BOSCH Provider:?Momo Rojas MD :1955???Age:67 Y???Sex:Male Murray e:11/12/2022 Address:[address] [place], [place] [id number] Pcp:Yves Duran MD Subjective: * Chief Complaints: * ???1. Patient presents today for a colon screening, endo. * Medical History:? Objective: * Vitals:? Assessment: Plan: * Treatment: * * The named appointment provid er may or may not be the originator of this progress note, and it is not deemed complete until electronically signed by the appointment provider. Sign off status: Pending * Provider:?Momo Rojas MD Date:? 023 Generated for Printi clayton/Fadonaldog/eTransmitting on:?05/12/2024 12:45 PM EDT
--- OUTSIDE RECORDS SUMMARY | 2024-05-12 12:46 | XMS_ITS ---
Author Organization Yves Duran MD Address [address] [place], [place] [id number] Care Team Providers Care Hot Cell Technician Name Role Phone Yves Duran Primary Care Provider Allergies No Known Allergies REASON FOR VISIT coughing for 1 month Negative for Covid tested this AM, c/o nonproductive cough, Audio [phone] Medications Medication SIG (Take, Route, Frequency, Duration) Notes Start Date End Date Status Ibuprofen 800 MG TAKE 1 TABLET BY GORDON TH THREE TIMES DAILY WITH FOOD OR MILK NEEDED for 90 Not-Taking Albuterol Sulfate HFA 108 (90 Base) MCG/ACT INHALE 1 PUFF BY MOUTH EVERY 4 HOURS NEEDED for 33 Not-Taking predniSONE 10 MG 1 tablet with food o r milk Orally 4 tabs for 3 days,3tabs for 3 days, 2 tabs for 3 days, and 1 tab for 3 days for 14 days 12/21/2023 Active Tamsulosin HCl 0.4 MG TAKE 1 CAPSULE BY MOUTH EVERY DAY 30 MINUTES AFTER THE SAME MEAL Active Vitamin B12 1000 mg 1 tablet Orally Once a day Active Folic Acid 1 MG 1 tablet Orally Once a day for 30 day(s) Active Finasteride 5 MG 1 tablet Orally Once a day Active Simvastatin 40 MG TAKE 1 TABLET BY GORDON TH EVERY EVENING for 90 Active Problems Problem Type SNOMED Code ICD Code Onset Dates Problem Status W/U Status Risk Notes Problem 404356490 Acute asthmatic bronchitis (J45.909) Active confirmed Vital Signs Height 68 in 12/21/2023 weight at home is 188 BP not taken at home Encounters Encounter Location Date Provider Diagnosis Yves Duran MD [address] [place] [address] [address] [place], [place] [id number] 12/21/2023 Yves Duran Acute asthmatic bronchitis J45.909 Assessments Encounter Date Diagnosis (ICD Code) Assessment Notes Treatment Notes Treatment Clinical Notes Section Notes 12/21/2023 Acute asthmatic bronchitis (ICD-10 - J45.909) patient verbalized understanding of medication and directions for use, pending diagnostic testing Plan Of Treatment Medication Medication Name Sig Start Date Stop Date Notes predniSONE 10 MG 1 tablet with food o r milk Orally 4 tabs for 3 days,3tabs for 3 days, 2 tabs for 3 days, and 1 tab for 3 days for 14 days 12/21/2023 Treatment Notes Assessment Notes Acute asthmatic bronchitis patient verba lized understanding of medication and directions for use, pending diagnostic testing Pending Test Test Name Order Date XR CHEST 2 VIEW PA & LAT 12/21/2023 Next Appt Details Provider Name:Yves Tello ier, 05/19/2024 02:30:00 PM, [address] [place] [address], [address], [place], [place], [id number], Progress Notes * Frank BOSCH EDOB:1955 (68 yo M)Acc No.[id number]:12/21/2023 Patient:?Frank Bosch Provider:?Yves Duran MD :1955???Age:68 Y???Sex:Male Murray e:12/21/2023 Address:[address] [place], [place] [id number] Subjective: * Chief Complaints: * ???coughing for 1 month Nega tive for Covid tested this [facility]/o nonproductive coughAudio [phone] * HPI: ???Symptom(s):?Telehealth?Location of provider rendering services:?[address], [address],?Location of patient:?at address listed in demographics for today's visit,?Patient identification confirmed using:?Name, , SSN, Insurance information,?Telehealth method:?Telephone only. Patient not visible to care provider.,?Consent:?Patient verbally consented to treatment, Patient verbally consented to billing insurance company, Patient informed of any privacy concerns related to method of visit,?Total time spend talking with patient (minutes)?16.? patient is a 68 yo male audio telehealth visit, just coughing and wheezing for one month. still using inhaler 3 times per day. tested negative for covid this morning. * ROS:?General/Constitutional:?Denies?Chills.?Denies?Fatigue.?Denies?Fever.?Denies?Headache.?ENT:?Patient denies?decreased sense of smell , any loss of taste , sore throat.?Denies?Sore throat.?Respiratory:?Admits?Cough.?Denies?Shortness of breath at rest.?Denies?Shortness of breath with exertion.?Denies?Sputum production.?Gastrointestinal:?Denies?Diarrhea.?Denies?Nausea.?Musculoskeletal:?Patient denies?muscle aches.?Peripheral Vascular:?Patient denies?red and blue toes.? * Medical History:? * Surgical History:? * Hospitalization/Major Diagno stic Procedure:? * Medications:?TakingFolic Aci d 1 MG Tablet 1 tablet Orally Once a dayVitamin B12 1000 mg Tablet 1 tablet Orally Once a daySimvastatin 40 MG Tablet TAKE 1 TABLET BY MOUTH EVERY EVENING Finasteride 5 MG Tablet 1 tablet Orally Once a dayTamsulosin HCl 0.4 MG Capsule TAKE 1 CAPSULE BY MOUTH EVERY DAY 30 MINUTES AFTER THE SAME MEAL Taking Folic Acid 1 MG Tablet 1 tablet Orally Once a dayTaking Vitamin B12 1000 mg Tablet 1 tablet Orally Once a dayTaking Simvastatin 40 MG Tablet TAKE 1 TABLET BY MOUTH EVERY EVENING Taking Finasteride 5 MG Tablet 1 tablet Orally Once a dayTaking Tamsulosin HCl 0.4 MG Capsule TAKE 1 CAPSULE BY MOUTH EVERY DAY 30 MINUTES AFTER THE SAME MEAL Not-Taking/PRNIbuprofen 800 MG Tablet TAKE 1 TABLET BY MOUTH THREE TIMES DAILY WITH FOOD OR MILK NEEDED Albuterol Sulfate HFA 108 (90 Base) MCG/ACT Aerosol Solution INHALE 1 PUFF BY MOUTH EVERY 4 HOURS NEEDED Not-Taking/PRN Ibuprofen 800 MG Tablet TAKE 1 TABLET BY MOUTH THREE TIMES DAILY WITH FOOD OR MILK NEEDED Not- Taking/PRN Albuterol Sulfate HFA 108 (90 Base) MCG/ACT Aerosol Solution INHALE 1 PUFF BY MOUTH EVERY 4 HOURS NEEDED DiscontinuedZithromax Z-Gallo 250 MG Tablet 2 tablet on the first day, then 1 tablet daily for 4 days Orally Once a dayMedication List reviewed and reconciled with the patientDiscontinued Zithromax Z-Gallo 250 MG Tablet 2 tablet on the first day, then 1 tablet daily for 4 days Orally Once a dayMedication List reviewed and reconciled with the patient * Allergies:?N.K.D.A.yes[Aller gies Verified] Objective: * Vitals:?Ht: 68 weight at home is 188 BP not taken at home. Assessment: * Assessment: 1.?Acute asthmatic bronchiti s - J45.909 (Primary)? Plan: * Treatment: Notes: patient verbalized understanding of medication and directions for use, pending diagnostic testing?? * Procedure Codes:? * * Sign off status: Completed true * Provider:?Yves Duran MD Date:?1 Generated for Kartik arnold/Aren/Joseph on:?05/12/2024 12:45 PM EDT History and Physical Notes * HPI (History of Present Illness) Category Sub-Category Detail Notes Category Not es Symptom(s) Telehealth Location of [facility] ider rendering services:: [address], [address] patient is a 68 yo male audio telehealth visit, just coughing and wheezing for one month. still using inhaler 3 times per day. tested negative for covid this morning. Location of patient:: at address listed in demographics for today's visit Patient identification confirmed using:: Name, , SSN, Insurance information Telehealth method:: Telephone only. Shweta ent not visible to care provider. Consent:: Patient verbally c onsented to treatment, Patient verbally consented to billing insurance company, Patient informed of any privacy concerns related to method of visit Total time spend talking with patient (m inutes): 16
--- OUTSIDE RECORDS SUMMARY | 2024-05-12 12:46 | XMS_ITS ---
Author Organization [facility] Address [address] [place] [address] Care Team Providers Care Hand Sewer Name Role Phone Yves Duran MD Primary Care Provider Momo Vergara Unavailable [phone] REASON FOR VISIT screening, hx polyps Problems Problem Type SNOMED Code ICD Code Onset Dates Problem Status W/U Status Risk Notes Problem History of polyp of colon (situation) (927486289) Personal history of colonic polyps (Z86.010) Active confirmed Problem Diverticular disease of colon (018377906) Diverticulosis of large intestine without perforation or abscess without bleeding (K57.30) Active confirmed Encounters Encounter Location Date Provider Diagnosis [facility] [address] [phone] 02/18/2023 Momo Rojas Encounter for scre ening colonoscopy Z12.11 ; Personal history of colonic polyps Z86.010 ; Diverticulosis of large intestine without perforation or abscess without bleeding K57.30 and Internal hemorrhoids K64.8 Assessments Encounter Date Diagnosis (ICD Code) Assessment Notes Treatment Notes Treatment Clinical Notes Section Notes 02/18/2023 Encounter for screening colonoscopy (ICD-10 - Z12.11) 02/18/2023 Personal history of colonic polyps (ICD-10 - Z86.010) 02/18/2023 Diverticulosis of large intestine without perforation or abscess without bleeding (ICD-10 - K57.30) 02/18/2023 Internal hemorrhoids (ICD-10 - K64.8) Plan Of Treatment No Information Progress Notes * WHIT BOSCH EDOB:1955 (69 yo M)Acc No.[id number]:02/18/2023 COLON WITH MAC Patient:?WHIT BOSCH Provider:?Momo Rojas MD :1955???Age:67 Y???Sex:Male Murray e:02/18/2023 Address:[address] [place] [address], [place] [id number] Pcp:Yves Duran MD Subjective: * Chief Complaints: * ???1. Screening, hx polyps. * Medical History:? Objective: * Vitals:? Assessment: * Assessment: 1.?Encounter for screening c olonoscopy - Z12.11 (Primary)???2.?Personal history of colonic polyps - Z86.010???3.?Diverticulosis of large intestine without perforation or abscess without bleeding - K57.30???4.?Internal hemorrhoids - K64.8??? Plan: * Treatment: * Procedure Codes:?06982 DIAGN OSTIC COLONOSCOPY * * The named appointment provid er may or may not be the originator of this progress note, and it is not deemed complete until electronically signed by the appointment provider. Sign off status: Pending * Provider:?Momo Rojas MD Date:? 023 Generated for Kartik arnold/Aren/eTransmitting on:?05/12/2024 12:45 PM EDT
--- OUTSIDE RECORDS SUMMARY | 2024-05-12 12:46 | XMS_ITS | Patient Health Record ---
Author Organization [facility] Address [address] [place] [address] Care Team Providers Care Adult Probation Officer Name Role Phone Yves Duran MD Primary Care Provider Momo Vergara Unavailable [phone] Allergies No Known Allergies Reason For Referral No Information Medications Medication SIG (Take, Route, Frequency, Duration) Notes Start Date End Date Status Simvastatin 40 MG 1 tablet in the even ing Orally Once a day Active Vitamin B12 1000 MCG 1 tablet Orally Once a day Active Finasteride 5 MG TK 1 T PO QD Oral for 60 Active Ibuprofen 800 MG Oral for 90 N ot-Taking Folic Acid 1 MG 1 tablet Orally Once a day Active Problems Problem Type SNOMED Code ICD Code Onset Dates Problem Status W/U Status Risk Notes Problem 257254180 Encounter for screening for malignant neoplasm of colon (Z12.11) Active confirmed Problem 578251881 History of adenomatous polyp of colon (Z86.010) Active confirmed Problem History of polyp of colon (situation) (448112689) Personal history of colonic polyps (Z86.010) Active confirmed Problem Diverticular disease of colon (277233512) Diverticulosis of large intestine without perforation or abscess without bleeding (K57.30) Active confirmed Problem [id number] Pre-procedural examination (Z01.818) Active confirmed Plan Of Treatment Future Test Test Name Order Date COLONOSCOPY 07/28/2012 COLONOSCOPY 08/12/2017 COLONOSCOPY 11/20/2022 Insurance Providers Payer Name Payer Address Payer Phone Subscriber Number Group Number Insured Name Patient Relationship to Insured Coverage Start Date Coverage End Date [facility] [address] [place] [address] [id number] WHIT BOSCH Self - patient is the insured Medical (General) History Medical History History ICD Code Colonoscopy in 07/2003 with anna santoro of a tubular adenoma with dysplasia; colonsocopy in 11/2006 was negative except hemorrhoids; colonoscopy in August 2012--one tubular adenoma removed Kidney stone x 1--30 yrs ago Denies IL,DM,CVA,Lung disease,renal dise ase Hyperlipidemia Hemoyltic anemia with cold a gglutinans 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 PateOgqmrs-kndrwl-gm B12 shots and folic acid Negative colonoscopy in 11/2017 Surgical History Surgery Date(Month/Year) Vasectomy Lap CCY in 04/[address] Marks at [facility]
[2024-05-12 12:48] LABS: Reflex LDLD? No
== END 2024-05-12 10:18 | disposition home or self-care (01) ==
LOC: HO.LNP 10:17
PROVIDERS: Visit Provider Internal Medicine
DX: E78.00 Pure hypercholesterolemia, unspecified (principal); D69.6 Thrombocytopenia, unspecified; K21.00 Gastro-esophageal reflux disease with esophagitis, without bleeding; Z12.5 Encounter for screening for malignant neoplasm of prostate
CPT/HCPCS: 80053; 80061; 80076; 81001; 82248; 84153; 85025